=== PATIENT | male | born 1970 | race Caucasian/White ===

== ENCOUNTER → 2019-03-20 | Outpatient (CLI) | payer BC ==
[~2019-03-20] MED LIST: HYDACE5 PO; IBUP600 PO; LANS30EC PO; PANT40 PO; PROP50 PO
== END | disposition home or self-care (01) ==
LOC: LAB 09:45 → LAB SHORT 09:45 → LAB FUT 03-07 16:00
DX: K29.00 Acute gastritis without bleeding (principal)
CPT/HCPCS: 87338

== ENCOUNTER 2020-02-10 06:52 | Day surgery (SDC) | payer BC ==
[~2020-02-10] VITALS: Ht 180.3 cm; Wt 71.7 kg
[2020-02-10] MEDS ORDERED: EUTHYROX125 MCG PO (07:20)
--- NOTE | 2020-02-10 08:09 | NUR ---
02/10/20 0809 Pamela Villegas Juanito History, Chart, Medications and Allergies reviewed before start of procedure.Patient confirms NPO status and agrees with scheduled surgery.3-LEAD EKG REVIEWED WITH PHYSICIAN PRIOR TO START OF PROCEDURE.MONITOR INTACT WITH CONTINUOUS PULSE OXIMETRY AND INTERMITTENT BP.O2 VIA N/C INTACT THROUGHOUT SEDATION/PROCEDURE. PATIENT DETERMINED TO BE ASA APPROPRIATE FOR PROPOFOL SEDATION PRIOR TO START OF PROCEDURE BY DR. PALOMO`
--- NOTE | 2020-02-10 09:05 | NUR ---
PT TO STEP. DENIES PAIN OR NAUSEA.
--- NOTE | 2020-02-10 09:26 | NUR ---
ASSUMED CARE OF PATIENT AND RECIEVED REPORT.
--- NOTE | 2020-02-10 09:28 | NUR ---
DISCHARGED WITH ALL BELONGINGS AND DISCHARGE INSTRUCTIONS.
== END 2020-02-10 22:41 | disposition home or self-care (01) ==
LOC: ORSCMMR 06:52 → ORD 06:52 → ORSCMMR 06:54 → ORD 08:00
PROVIDERS: Internal Medicine Gastroenterology
PROC: 0DJD8ZZ Inspection of Lower Intestinal Tract, Via Natural or Artificial Opening Endoscopic (ICD-10-PCS; principal; 2020-02-10 08:00)
PROC: 0DB68ZX Excision of Stomach, Via Natural or Artificial Opening Endoscopic, Diagnostic (ICD-10-PCS; principal; 2020-02-10 08:00)
PROC: 0DB48ZX Excision of Esophagogastric Junction, Via Natural or Artificial Opening Endoscopic, Diagnostic (ICD-10-PCS; principal; 2020-02-10 08:00)
DX: R10.13 Epigastric pain (principal); K29.50 Unspecified chronic gastritis without bleeding; K21.9 Gastro-esophageal reflux disease without esophagitis; Z87.19 Personal history of other diseases of the digestive system; Z12.11 Encounter for screening for malignant neoplasm of colon; E03.9 Hypothyroidism, unspecified; Z79.899 Other long term (current) drug therapy; Z87.891 Personal history of nicotine dependence
CPT/HCPCS: 43239; G0121; 87081; 88305; 88312; 88342; J2704; J7120